=== PATIENT | male | born 1935 | race Caucasian/White ===

== ENCOUNTER 2018-12-18 12:33 | Inpatient (IN) | payer MEDICARE, OTHER ==
[~2018-12-18] VITALS: Ht 167.6 cm; Wt 79.6 kg
[2018-12-18] VITALS (22 sets, daily range): BP systolic 82–168; BP diastolic 45–78; PULSE 67–82; RESP 12–27; Ht 167.6 cm; Wt 79.6 kg
[~2018-12-18 12:33] MED LIST: HEMOSTATIC MATRIX/ THROMBIN 1 EA SYG ZFS ONE
[2018-12-18] MEDS ORDERED: LISI-313 ORAL (13:19)
[2018-12-18] MEDS ORDERED: RSV10T ORAL (13:19)
[2018-12-18] MEDS ORDERED: HYDR-4012 PO (13:19)
[2018-12-18] MEDS ORDERED: TAMS-14 ORAL (13:19)
[2018-12-18] MEDS ORDERED: IBUP200C11 PO (13:19)
[2018-12-18] MEDS ORDERED: LACTATED RINGER'S 1,000 ML IV SCH (14:00)
--- NOTE | 2018-12-18 15:41 | PREAC ---
Date/Time of Note Date/Time of Note DATE: 12/18/18 TIME: 15:37 Anesthesia Eval and Record Evaluation Time Pre-Procedure Interview DATE: 12/18/18 TIME: 15:37 Age 83 Sex male NPO: 8 hrs Preoperative diagnosis Lumbar Radiculopathy and Spinal Stenosis Planned procedure Lumbar L4-5, L5-S1 Decompression with Removal of Intraspinal Extradural Cyst Past Medical History Past Medical History: Includes Cardio: HTN, Dyslipidemia Surgery & Anesthesia Issues No known issue Meds Anticoagulation: No Beta Rashad within 24 hr: No Reason Beta Rashad not given: Pt. not on B-Rashad Reported Medications Ibuprofen* (Advil*) 200 Mg Capsule, 200 MG PO Q6H PRN for PAIN, CAP 12/18/18 Hydrocodone/Acetaminophen ([place] 7.5-325 Tablet) 1 Each Tablet, 1 TAB PO Q6H PRN PRN for PAIN LEVEL 6-10, TAB 12/18/18 Rosuvastatin Calcium* (Crestor*) 10 Mg Tablet, 1 TAB ORAL DAILY 12/18/18 Lisinopril* (Lisinopril*) 5 Mg Tablet, 1 TAB ORAL DAILY 12/18/18 Tamsulosin Hcl* (Flomax*) 0.4 Mg Cap.er.24h, 1 CAP ORAL DAILY 12/18/18 Current Medications Lactated Ringer's 1,000 ml @ 25 mls/hr Q24H IV Last administered on 12/18/18at 14:14; Admin Dose 25 MLS/HR; Start 12/18/18 at 14:00 Meds reviewed: Yes Allergies Coded Allergies: No Known Allergy (Unverified , 12/18/18) Allergies Reviewed: Yes Labs/Studies Labs Reviewed: Reviewed by anesthesiologist test: N/A Studies: ECG (n/a), CXR (n/a) Pre-procedure Exam Last vitals Vital Signs Date Temp Pulse Resp B/P (MAP) Pulse Ox O2 O2 Flow FiO2 Time Delivery Rate 12/18/18 97.5 67 16 168/78 96 14:03 (108) Airway: Adequate mouth opening, Adequate thyromental dist Mallampati: Mallampati II Teeth: Normal Lung: Normal Heart: Normal ASA Physical Status ASA physical status: 2 Emergency: None Planned Anesthetic General/MAC: ETT Planned Pain Management Parenteral pain med Pre-operative Attestations Prior to commencing anesthesia and surgery, the patient was re-evaluated, there was verification of: *The patient's identity *The results of appropriate recent lab work and preoperative vital signs *The above evaluation not changing prior to induction *Anesthetic plan, risk benefits, alternative and complications discussed with patient/family; questions answered; patient/family understands, accepts and wishes to proceed. MARIN CARR MD Dec 18, 2018 15:40
[2018-12-18] MEDS ORDERED: CEFAZOLIN 1 GM INJ ONE (15:43)
[2018-12-18] MEDS: D5W-0.45 NACL + KCL 20 MEQ 1,000 ML IV SCH ×2 (15:43→21:39)
[2018-12-18] MEDS ORDERED: ROCURONIUM 50 MG INJ ONE ×2 (15:43→19:16)
[2018-12-18] MEDS ORDERED: PROPOFOL 20 ML ONE (15:43)
--- NOTE | 2018-12-18 15:43 | HPN ---
Date/Time of Note Date/Time of Note DATE: 12/18/18 TIME: 15:43 Interval H&P Admission Note Pt. seen H&P reviewed: No system changes KARMA LYNNE PA-C Dec 18, 2018 15:43
[2018-12-18] MEDS ORDERED: METOCLOPRAMIDE 10 MG INJ ONE (15:44)
[2018-12-18] MEDS ORDERED: FENTAnyl 50 MCG/ML VIAL ONE ×2 (15:44→18:33)
[2018-12-18] MEDS ORDERED: DEXAMETHASONE 4 MG/ML 5 ML INJ ONE (15:44)
[2018-12-18] MEDS ORDERED: ONDANSETRON 4 MG INJ ONE (15:44)
[2018-12-18] MEDS ORDERED: GELATIN SIZE 100 SPONGE ONE (15:59)
[2018-12-18] MEDS ORDERED: CA CHLORIDE 10% 10 ML SYRINGE ONE (15:59)
[2018-12-18] MEDS ORDERED: BUPIVACAINE 0.25%/EPI (SDV) 30 ML INJ ONE (15:59)
[2018-12-18] MEDS ORDERED: POLYMYXIN/BACITRACIN 1L IRRIG ONE (15:59)
[2018-12-18] MEDS ORDERED: THROMBIN 5000 UNIT VIAL ONE (15:59)
[2018-12-18] MEDS ORDERED: CYCLOBENZAPRINE 10 MG TAB PO PRN (16:00)
[2018-12-18] MEDS ORDERED: DIPHENHYDRAMINE 50 MG INJ IV PRN ×2 (16:00)
[2018-12-18] MEDS: CEFAZOLIN 1 GM/50 ML (PMX) 50 ML IVPB SCH (16:00)
[2018-12-18] MEDS ORDERED: HYDROCODONE/APAP (10/325) TAB PO PRN (16:00)
[2018-12-18] MEDS ORDERED: LABETALOL HCL 20MG INJ IV PRN (16:00)
[2018-12-18] MEDS ORDERED: DIPHENHYDRAMINE 25 MG CAP PO PRN (16:00)
[2018-12-18] MEDS ORDERED: OXYCODONE/ACETAMINOPHEN (5/325) TAB PO PRN (16:00)
[2018-12-18] MEDS ORDERED: METOCLOPRAMIDE 10 MG INJ IV PRN (16:00)
[2018-12-18] MEDS ORDERED: FENTAnyl 50 MCG/ML VIAL IV PRN ×3 (16:00)
[2018-12-18] MEDS ORDERED: HYDROmorphONE 0.5 MG/0.5 ML SYG IV PRN (16:00)
[2018-12-18] MEDS ORDERED: HYDROmorphONE 1 MG/5 ML IV SYRINGE IV PRN ×3 (16:00)
[2018-12-18] MEDS ORDERED: CEPASTAT LOZENGE MT PRN (16:00)
[2018-12-18] MEDS ORDERED: hydrALAzine 20 MG INJ IV PRN (16:00)
[2018-12-18] MEDS ORDERED: NALOXONE (0.4 MG/ML) INJ IV PRN (16:00)
[2018-12-18] MEDS ORDERED: BISACODYL 10 MG SUPP PR PRN (16:00)
[2018-12-18] MEDS ORDERED: EPHEDrine 25 MG/5 ML SYG IV PRN (16:00)
[2018-12-18] MEDS ORDERED: ACETAMINOPHEN 325 MG TAB PO PRN (16:00)
[2018-12-18] MEDS ORDERED: ONDANSETRON 4 MG INJ IV PRN ×2 (16:00)
[2018-12-18] MEDS ORDERED: MEPERIDINE 25 MG INJ IV PRN (16:00)
[2018-12-18] MEDS ORDERED: AL HYDROX/MG HYDROX/SIMETH 30 ML CUP PO PRN (16:00)
[2018-12-18] MEDS ORDERED: HEPARIN 1000 UNITS/ML 10 ML INJ ONE (17:32)
[2018-12-18] MEDS ORDERED: HEMOSTATIC MATRIX/ THROMBIN 1 EA SYG ZFS ONE (17:37)
[2018-12-18] MEDS ORDERED: HEPARIN 1000 UNITS/ML 10 ML INJ IRR ONE (17:49)
[2018-12-18] MEDS ORDERED: LABETALOL HCL 20MG INJ ONE (18:29)
[2018-12-18] MEDS ORDERED: PHENYLephrine (100 MCG/ML) 10ML SYG ONE (19:00)
[2018-12-18] MEDS ORDERED: EPHEDrine 25 MG/5 ML SYG ONE (19:00)
[2018-12-18] MEDS ORDERED: SUGAMMADEX SODIUM 200 MG/2 ML VIAL IV ONE (19:41)
[2018-12-18] MEDS ORDERED: hydrALAzine 20 MG INJ ONE (19:43)
--- NOTE | 2018-12-18 19:49 | SIPON ---
Date/Time of Note Date/Time of Note DATE: 12/18/18 TIME: 19:46 Operative Report Preoperative Diagnosis Spinal stenosis Postoperative Diagnosis Spinal stenosis Operation/Procedure Performed Lumbar decompression Surgeon see signature line embroidery assistant Maite Julian Anesthesia: general Estimated blood loss: 50 - 100 ml's Transfusion Required none Specimen Disc Grafts/Implants none Complications none MAX DAN MD Dec 18, 2018 19:49
--- NOTE | 2018-12-18 19:58 | PAC ---
Date/Time of Note Date/Time of Note DATE: 12/18/18 TIME: 19:58 Post-Anesthesia Notes Post-Anesthesia Note Last documented vital signs Vital Signs Date Temp Pulse Resp B/P (MAP) Pulse Ox O2 O2 Flow FiO2 Time Delivery Rate 12/18/18 97.5 67 16 168/78 98 face mask 20:03 (108) Activity: WNL Respiratory function: WNL Cardiovascular function: WNL Mental status: Baseline Pain reasonably controlled: Yes Hydration appropriate: Yes Nausea/Vomiting absent: Yes MARIN CARR MD Dec 18, 2018 19:58
[2018-12-18] MEDS: DOCUSATE SODIUM 100 MG CAP PO SCH ×2 (21:00→22:03)
[2018-12-18] MEDS: HYDROCODONE/APAP (10/325) TAB PO PRN (23:22)
[2018-12-18] MEDS ORDERED: TAMSULOSIN (SR) 0.4 MG CAP PO SCH (23:45)
[2018-12-19] VITALS: BP 92/55; PULSE 71; RESP 17
[2018-12-19] MEDS ORDERED: ATORVASTATIN 40 MG TAB PO SCH
[2018-12-19] MEDS: CEFAZOLIN 1 GM/50 ML (PMX) 50 ML IVPB SCH ×2 (00:21→08:21)
[2018-12-19] MEDS: D5W-0.45 NACL + KCL 20 MEQ 1,000 ML IV SCH ×2 (01:43→11:43)
[2018-12-19 04:34] VITALS: BP 100/52; PULSE 67; RESP 17
[2018-12-19 07:24] VITALS: BP 96/52; PULSE 66; RESP 18
--- NOTE | 2018-12-19 07:55 | OPR ---
DATE OF OPERATION: 12/18/2018 PREOPERATIVE DIAGNOSES: 1. Right L4-L5 and L5-S1 stenosis with radiculopathy. 2. 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 POSTOPERATIVE DIAGNOSIS: 1. Right L4-L5 and L5-S1 stenosis with radiculopathy. 2. 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 OPERATION PERFORMED: 1. Right L4-L5 and L5-S1 decompression with decompression of L4, L5 and S1 nerve roots. 2. Removal of intraspinal extradural cyst at L4-L5. 3. Removal of intraspinal extradural cyst at L5-S1. 4. Use of operative microscope. 5. Lateral localizing film x2. 6. Intraoperative neuromonitoring. PRIMARY SURGEON: Paolo Herrera MD METAL BUGGY OPERATOR: Maite Julian PA-C NEED FOR TAPE COATER: During this spinal surgical procedure, my fleet administrative assistant was used to retract and protect the spinal nerves and dural sac. My fleet administrative assistant also employed the suction catheters to evacuate blood from the surgical field to improve visualization of the neural structures. The fleet administrative assistant was medically necessary to facilitate the completion of the surgery in a safe and expeditious manner. [facility] regulations, as well as hospital bylaws, preclude the use of non-licensed health care personnel, such as operating room technicians, to perform these functions. FINDINGS: Neuromonitoring at the start of the case revealed right L5 amplitude down 40%, right S1 down 30%. At the end of the case, all nerve signals returned to normal. The patient had severe stenosis on the right at L4-L5 and L5-S1 with synovial cysts both level compressing the nerve root. ESTIMATED BLOOD LOSS: 75 mL. DRAINS: One. SPECIMENS: Cysts from both levels were sent to pathology. COMPLICATIONS OF PROCEDURES: None. ANESTHESIOLOGIST: Wade Vasquez MD TYPE OF ANESTHESIA: General. INDICATIONS FOR PROCEDURE: This is an 83-year-old gentleman with right lumbar radiculopathy in setting of stenosis due to facet and ligamentum hypertrophy as well as extra spinal intradural cyst. He failed nonoperative measures; therefore, I recommended that he undergo the above procedure. Preoperatively, we discussed risks, benefits and alternatives. He understood and wished to proceed. DESCRIPTION OF PROCEDURE IN DETAIL: The patient was identified in the preoperative holding area, given Ancef antibiotic, taken to the operating room, where he was successfully placed under general anesthesia. Neuromonitoring leads were placed, sequential compressive devices were applied. The remote intraoperative neuromonitoring was performed by Dr. Lewis to include SSEP, MEP, and EMG performed by Nuji. The patient was placed on the operative table in prone position over a Vicente frame. All bony prominences were well padded. The back was then prepped and draped in the usual sterile fashion. Spinal needles were placed and lateral localizing film was obtained to confirm the correct levels. Once this was confirmed, I injected skin, subcutaneous tissue, and paraspinal musculature with 0.25% Marcaine and epinephrine. Incision was then made over the L4 to L5 and L5-S1 levels. Incision was taken down to dorsal fascia, which was incised with Bovie cautery. I then subperiosteally dissected the right L4, L5, and S1 lamina. Viri retractor was placed. Kerrison was placed under the lamina and repeat lateral films obtained to confirm the correct levels. Once this was confirmed, microscope was brought in and a right-sided hemilaminectomy was performed at L5 and a right-sided hemilaminotomy was performed at L4. The ligamentum flavum was quite thickened. I used curettes to tease this off of the lamina. Partial facetectomies were then performed at L4-L5 and L5-S1 on the right side. I then removed the extradural intraspinal cyst at L4-L5 and sent this to pathology. This was significantly compressing the L5 nerve root. At S1, the cyst was inferior and then therefore, I removed a portion of the S1 lamina, and I was then able to remove the extradural intraspinal cyst, which was severely compressing the S1 nerve root. Once this was done, all nerve signals returned to normal. Hemostasis was achieved with Gelfoam, thrombin, and bipolar cautery. Valsalva was performed and there was no leak of CSF. The wound was then copiously irrigated. I then placed a deep subfascial drain and closed the deep fascia with #1 Vicryl stitch. I closed the subcutaneous tissue with a 2-0 Vicryl stitch. Microscope was taken off the field. A 4-0 Monocryl closure was then performed. Dermabond and sterile dressings were then applied. The patient was then awakened from anesthesia and taken to the recovery room in stable condition. Lap, sponge, and instrument counts were correct x2. There were no apparent complications during the procedure. The patient will be admitted to the orthopedic riggs for routine postoperative care to include pain control, neurovascular checks, antibiotics and physical therapy. Dictated By: PAOLO KOVACS/EDENILSON Conf#: [id number] DID#: [id number] MTDD
--- NOTE | 2018-12-19 08:09 | CONS ---
Assessment/Plan Assessment/Plan Assessment/Plan (Daily) 1- Doing very well post op lumbar back surgery 2- Hx HBP, DIONNA resumed 3- Hx prostatism, flomax resumed 4- Hyperlipidemia, statin resumed 5- Will follow and eval for signs and sxs of thromboembolic disease Consultation Date/Type/Reason Admit Date/Time Dec 18, 2018 at 12:33 Type of Consult Medical post op Reason for Consultation Management of HBP, hyperlipidemia, prostatism Date/Time of Note DATE: 12/19/18 TIME: 08:04 Hx of Present Illness Persistent back pain which did not respond to conservative therapy and following appropriate imaging studies surgery thought appropriate. This am the pt is quite comfortable with min back pain. ENT: No no complaints Respiratory: no complaints Cardiovascular: no complaints Gastrointestinal: no complaints Genitourinary: no complaints Musculoskeletal: back pain (mild) Past Medical History Home Meds Reported Medications Ibuprofen* (Advil*) 200 Mg Capsule, 200 MG PO Q6H PRN for PAIN, CAP 12/18/18 Hydrocodone/Acetaminophen ([place] 7.5-325 Tablet) 1 Each Tablet, 1 TAB PO Q6H PRN PRN for PAIN LEVEL 6-10, TAB 12/18/18 Rosuvastatin Calcium* (Crestor*) 10 Mg Tablet, 1 TAB ORAL DAILY 12/18/18 Lisinopril* (Lisinopril*) 5 Mg Tablet, 1 TAB ORAL DAILY 12/18/18 Tamsulosin Hcl* (Flomax*) 0.4 Mg Cap.er.24h, 1 CAP ORAL DAILY 12/18/18 Medications Current Medications Lactated Ringer's 1,000 ml @ 25 mls/hr Q24H IV Last administered on 12/18/18at 14:14; Admin Dose 25 MLS/HR; Start 12/18/18 at 14:00 Potassium Chloride/Dextrose/ Sod Cl 1,000 ml @ 100 mls/hr Q10H IV Last administered on 12/18/18at 21:39; Admin Dose 100 MLS/HR; Start 12/18/18 at 15:43 Acetaminophen/ Hydrocodone Bitart ([place] (10/325)) 1 tab Q4H PRN PO .PAIN 1-5 Last administered on 12/18/18at 23:22; Admin Dose 1 TAB; Start 12/18/18 at 16:00 Acetaminophen/ Hydrocodone Bitart ([place] (10)) 2 tab Q4H PRN PO .PAIN 6-10; Start 12/18/18 at 16:00 Hydromorphone HCl (Dilaudid) 0.2 mg Q1H PRN IV .BREAKTHROUGH PAIN Last administered on 12/18/18at 21:34; Admin Dose 0.2 MG; Start 12/18/18 at 16:00 Cefazolin Sodium 50 ml @ 100 mls/hr Q8H IVPB Last administered on 12/19/18at 00:21; Admin Dose 100 MLS/HR; Start 12/18/18 at 16:00; Stop 12/19/18 at 08:29 Ondansetron HCl (Zofran Inj) 4 mg Q6H PRN IV NAUSEA/VOMITING; Start 12/18/18 at 16:00 Bisacodyl (Dulcolax Supp) 10 mg DAILY PRN [place] .CONSTIPATION; Start 12/18/18 at 16:00 Docusate Sodium (Colace) 100 mg BID PO Last administered on 12/18/18at 22:03; Admin Dose 100 MG; Start 12/18/18 at 21:00 Al Hydrox/Mg Hydrox/Simethicone (Mag-Al Plus) 15 ml Q6H PRN PO .CONSTIPATION/DYSPEPSIA; Start 12/18/18 at 16:00 Acetaminophen (Tylenol Tab) 650 mg Q4H PRN PO MUNOZ OR TEMP GREATER THAN 101.3F; Start 12/18/18 at 16:00 Cyclobenzaprine HCl (Flexeril) 5 mg TID PRN PO .MUSCLE SPASM; Start 12/18/18 at 16:00 Phenol (Cepastat Lozenge) 1 lozenge PRN PRN MT .SORE THROAT; Start 12/18/18 at 16:00 Diphenhydramine HCl (Benadryl) 25 mg Q6H PRN PO .ITCHING; Start 12/18/18 at 16:00 Diphenhydramine HCl (Benadryl) 25 mg Q6H PRN IV .ITCHING; Start 12/18/18 at 16:00 Naloxone HCl (Narcan) 0.2 mg Q2M PRN IV .RR 8 BREATHS/MIN OR LESS; Start 12/18/18 at 16:00 Lisinopril (Zestril) 5 mg DAILY PO ; Start 12/19/18 at 09:00 Tamsulosin HCl (Flomax) 0.4 mg HS PO Last administered on 12/19/18at 01:42; Admin Dose 0.4 MG; Start 12/18/18 at 23:45 Atorvastatin Calcium (Lipitor) 40 mg DAILY@21 PO Last administered on 12/19/18at 01:42; Admin Dose 40 MG; Start 12/19/18 at 00:00 Allergies: Coded Allergies: No Known Allergy (Unverified , 12/18/18) Family History Significant Family History: no pertinent family hx Social History Smoking Status: Never smoker Exam/Review of Systems Exam Vitals Vital Signs Date Temp Pulse Resp B/P (MAP) Pulse Ox O2 O2 Flow FiO2 Time Delivery Rate 12/19/18 97.6 66 18 96/52 (67) 99 Room Air 07:24 12/19/18 2.0 00:00 Intake and Output 12/18/18 12/18/18 12/19/18 1515:00 23:00 07:00 IntakeIntake Total 120 ml 1740 ml OutputOutput Total 315 ml 350 ml BalanceBalance -195 ml 1390 ml Neck: No jvd Respiratory: clear to auscultation Cardiovascular: regular rate and rhythm Gastrointestinal: soft Extremities: No calf tenderness, No edema, No pitting pedal edema Results Result Diagram: 12/19/1844812/19/18448 Results 24hrs Laboratory Tests Test 12/19/18 04:49 White Blood Count 6.8 Red Blood Count 3.51 L Hemoglobin 10.8 L Hematocrit 33.9 L Mean Corpuscular Volume 96.6 Mean Corpuscular Hemoglobin 30.8 Mean Corpuscular Hemoglobin Concent 31.9 L Red Cell Distribution Width 13.1 Platelet Count 174 Mean Platelet Volume 11.2 H Immature Granulocytes % 0.300 Neutrophils % 91.3 H Lymphocytes % 6.3 L Monocytes % 2.1 Eosinophils % 0.0 Basophils % 0.0 Nucleated Red Blood Cells % 0.0 Immature Granulocytes # 0.020 Neutrophils # 6.2 Lymphocytes # 0.4 L Monocytes # 0.1 L Eosinophils # 0.0 Basophils # 0.0 Nucleated Red Blood Cells # 0.0 Sodium Level 138 Potassium Level 4.6 Chloride Level 107 Carbon Dioxide Level 22 Anion Gap 9 Blood Urea Nitrogen 24 H Creatinine 1.01 Est Glomerular Filtrat Rate mL/min Glucose Level 225 H Calcium Level 7.7 L Magnesium Level 1.9 Medications Medication Current Medications Lactated Ringer's 1,000 ml @ 25 mls/hr Q24H IV Last administered on 12/18/18at 14:14; Admin Dose 25 MLS/HR; Start 12/18/18 at 14:00 Potassium Chloride/Dextrose/ Sod Cl 1,000 ml @ 100 mls/hr Q10H IV Last administered on 12/18/18at 21:39; Admin Dose 100 MLS/HR; Start 12/18/18 at 15:43 Acetaminophen/ Hydrocodone Bitart ([place] (10/325)) 1 tab Q4H PRN PO .PAIN 1-5 Last administered on 12/18/18at 23:22; Admin Dose 1 TAB; Start 12/18/18 at 16:00 Acetaminophen/ Hydrocodone Bitart ([place] (10/325)) 2 tab Q4H PRN PO .PAIN 6-10; Start 12/18/18 at 16:00 Hydromorphone HCl (Dilaudid) 0.2 mg Q1H PRN IV .BREAKTHROUGH PAIN Last administered on 12/18/18at 21:34; Admin Dose 0.2 MG; Start 12/18/18 at 16:00 Cefazolin Sodium 50 ml @ 100 mls/hr Q8H IVPB Last administered on 12/19/18at 00:21; Admin Dose 100 MLS/HR; Start 12/18/18 at 16:00; Stop 12/19/18 at 08:29 Ondansetron HCl (Zofran Inj) 4 mg Q6H PRN IV NAUSEA/VOMITING; Start 12/18/18 at 16:00 Bisacodyl (Dulcolax Supp) 10 mg DAILY PRN [place] .CONSTIPATION; Start 12/18/18 at 16:00 Docusate Sodium (Colace) 100 mg BID PO Last administered on 12/18/18at 22:03; Admin Dose 100 MG; Start 12/18/18 at 21:00 Al Hydrox/Mg Hydrox/Simethicone (Mag-Al Plus) 15 ml Q6H PRN PO .CONSTIPATION/DYSPEPSIA; Start 12/18/18 at 16:00 Acetaminophen (Tylenol Tab) 650 mg Q4H PRN PO MUNOZ OR TEMP GREATER THAN 101.3F; Start 12/18/18 at 16:00 Cyclobenzaprine HCl (Flexeril) 5 mg TID PRN PO .MUSCLE SPASM; Start 12/18/18 at 16:00 Phenol (Cepastat Lozenge) 1 lozenge PRN PRN MT .SORE THROAT; Start 12/18/18 at 16:00 Diphenhydramine HCl (Benadryl) 25 mg Q6H PRN PO .ITCHING; Start 12/18/18 at 16:00 Diphenhydramine HCl (Benadryl) 25 mg Q6H PRN IV .ITCHING; Start 12/18/18 at 16:00 Naloxone HCl (Narcan) 0.2 mg Q2M PRN IV .RR 8 BREATHS/MIN OR LESS; Start 12/18/18 at 16:00 Lisinopril (Zestril) 5 mg DAILY PO ; Start 12/19/18 at 09:00 Tamsulosin HCl (Flomax) 0.4 mg HS PO Last administered on 12/19/18at 01:42; Admin Dose 0.4 MG; Start 12/18/18 at 23:45 Atorvastatin Calcium (Lipitor) 40 mg DAILY@21 PO Last administered on 12/19/18at 01:42; Admin Dose 40 MG; Start 12/19/18 at 00:00 CRISTINA ROGER MD Dec 19, 2018 08:09
[2018-12-19] MEDS: DOCUSATE SODIUM 100 MG CAP PO SCH (08:21)
[2018-12-19] MEDS: HYDROCODONE/APAP (10/325) TAB PO PRN ×2 (08:26→13:05)
[2018-12-19] MEDS ORDERED: LISINOPRIL 5 MG TAB PO SCH (09:00)
[2018-12-19] MEDS ORDERED: ROSUVASTATIN CALCIUM ORAL SCH (09:00)
--- NOTE | 2018-12-19 11:45 | DS ---
Date/Time of Note Date/Time of Note DATE: 12/19/18 TIME: 11:45 Discharge Summary Admission/Discharge Info Admit Date/Time Dec 18, 2018 at 12:33 Discharge Date/Time December 19 Discharge Diagnosis Lumbar decompression Patient Condition: Good Procedures Lumbar decompression Hospital Course Patient was admitted to the orthopedic riggs after undergoing a lumbar decompression. His postoperative course was uncomplicated. By postoperative day 1 he was deemed stable for discharge to follow-up arranged with the undersigned Home Meds Reported Medications Ibuprofen* (Advil*) 200 Mg Capsule, 200 MG PO Q6H PRN for PAIN, CAP 12/18/18 Hydrocodone/Acetaminophen ([place] 7.5-325 Tablet) 1 Each Tablet, 1 TAB PO Q6H PRN PRN for PAIN LEVEL 6-10, TAB 12/18/18 Rosuvastatin Calcium* (Crestor*) 10 Mg Tablet, 1 TAB ORAL DAILY 12/18/18 Lisinopril* (Lisinopril*) 5 Mg Tablet, 1 TAB ORAL DAILY 12/18/18 Tamsulosin Hcl* (Flomax*) 0.4 Mg Cap.er.24h, 1 CAP ORAL DAILY 12/18/18 Primary Care Provider Not On Staff Doctor Pending Labs Laboratory Tests Test 12/19/18 04:49 White Blood Count 6.8 10^3/ul (4.8-10.8) Red Blood Count 3.51 10^6/ul (4.70-6.10) Hemoglobin 10.8 g/dl (14.0-18.0) Hematocrit 33.9 % (42.0-52.0) Mean Corpuscular Volume 96.6 fl (82.0-101.0) Mean Corpuscular Hemoglobin 30.8 pg (29.0-33.0) Mean Corpuscular Hemoglobin Concent 31.9 g/dl (32.0-37.0) Red Cell Distribution Width 13.1 % (11.5-14.5) Platelet Count 174 10^3/UL (140-415) Mean Platelet Volume 11.2 fl (7.4-10.4) Immature Granulocytes % 0.300 % (0.001-0.429) Neutrophils % 91.3 % (39.0-77.0) Lymphocytes % 6.3 % (15.0-51.0) Monocytes % 2.1 % (0.0-11.0) Eosinophils % 0.0 % (0.0-7.0) Basophils % 0.0 % (0.0-2.0) Nucleated Red Blood Cells % 0.0 /100WBC (0.0-0.0) Immature Granulocytes # 0.020 10^3/ul (0.0-0.031) Neutrophils # 6.2 10^3/ul (1.6-7.5) Lymphocytes # 0.4 10^3/ul (0.8-2.9) Monocytes # 0.1 10^3/ul (0.3-0.9) Eosinophils # 0.0 10^3/ul (0.0-0.5) Basophils # 0.0 10^3/ul (0.0-0.1) Nucleated Red Blood Cells # 0.0 10^3/ul (0.0-0.0) Sodium Level 138 mmol/L (135-144) Potassium Level 4.6 mmol/L (3.5-5.1) Chloride Level 107 mmol/L (97-110) Carbon Dioxide Level 22 mmol/L (21-31) Anion Gap 9 (5-13) Blood Urea Nitrogen 24 mg/dl (7-20) Creatinine 1.01 mg/dl (0.61-1.24) Est Glomerular Filtrat Rate mL/min mL/min (>60) Glucose Level 225 mg/dl (70-220) Calcium Level 7.7 mg/dl (8.4-10.2) Magnesium Level 1.9 mg/dl (1.7-2.5) MAX DAN MD Dec 19, 2018 11:45
== END 2018-12-19 13:23 | disposition home or self-care (01) | DRG 520 ==
LOC: REC 12:33 → MS1 21:09
PROVIDERS: ADMIT Specialist; ATTEND Specialist
PROC: 00BT0ZZ Excision of Spinal Meninges, Open Approach (ICD-10-PCS; 2018-12-18)
PROC: 01NR0ZZ Release Sacral Nerve, Open Approach (ICD-10-PCS; 2018-12-18)
PROC: 01NB0ZZ Release Lumbar Nerve, Open Approach (ICD-10-PCS; principal; 2018-12-18 16:00)
DX: M48.061 Spinal stenosis, lumbar region without neurogenic claudication (principal); M54.16 Radiculopathy, lumbar region; M54.17 Radiculopathy, lumbosacral region; M48.07 Spinal stenosis, lumbosacral region; G96.19 Other disorders of meninges, not elsewhere classified; E78.5 Hyperlipidemia, unspecified
CPT/HCPCS: 72020; 80048; 83735; 85025; 86999; 88304; 97110; 97116; 97161; J0360; J0690; J1100; J1170; J1644; J2370; J2405; J2765; J3010; J3480; J7120